=== PATIENT | male | born 1980 | race Caucasian/White ===

== ENCOUNTER 2025-03-17 10:44 | Emergency (ER) | payer OTHER ==
[~2025-03-17] VITALS: Ht 170.2 cm; Wt 86.3 kg
[2025-03-17 11:09] VITALS: TEMP 98.205296
[2025-03-17 11:27] LABS: BASOPHILS % (AUTO) 0.7 % (0.0-2.0); EOSINOPHILS % (AUTO) 2.8 % (1.0-6.0); HEMATOCRIT 48.8 % (41-53); HEMOGLOBIN 16.2 g/dL (13.5-17.5); LYMPHOCYTES % (AUTO) 29.1 % (22.0-44.0); MEAN CORPUSCULAR HEMOGLOBIN 29.7 pg (26.0-34.0); MEAN CORPUSCULAR HGB CONC 33.3 G/dL (31.0-37.0); MEAN CORPUSCULAR VOLUME 89 fL (80-100); MONOCYTES # (AUTO) 0.5 K/uL (0.1-1.0); MONOCYTES % (AUTO) 7.4 % (2.0-9.0); NEUTROPHILS # (AUTO) 4.1 K/uL (1.8-7.7); PLATELET COUNT (AUTO) 205 K/uL (150-450); RED BLOOD CELL COUNT(AUTO) 5.47 MIL/uL (4.50-5.90); RED CELL DISTRIBUTION WIDTH 13.5 % (11.5-14.5); WHITE BLOOD COUNT (AUTO) 6.8 K/uL (4.5-11.0)
[2025-03-17] MEDS: LIDOCAINE 5% TRANSDERMAL PATCH TD ONE (11:37)
[2025-03-17] MEDS: ACETAMINOPHEN 500 MG TABLET PO ONE (11:38)
[2025-03-17] MEDS: METHOCARBAMOL 500 MG TABLET PO ONE (11:38)
[2025-03-17] MEDS: KETOROLAC TROMETHAMINE 30 MG/ML VIAL IM ONE (11:39)
[2025-03-17 12:10] VITALS: BP 115/71; PULSE 73; RESP 14; O2SAT 97
[2025-03-17 12:25] LABS: ANION GAP 8 mmol/L (8-16); CALCIUM, TOTAL 9.1 mg/dL (8.8-10.5); CARBON DIOXIDE 26 mmol/L (22-29); CHLORIDE 103 mmol/L (98-107); CREATININE 1.03 mg/dL (0.60-1.30); GLOMERULAR FILTR. RATE CALC > 60 mL/min (>60); GLUCOSE,RANDOM 96 mg/dL (70-110); POTASSIUM 3.8 mmol/L (3.5-5.1); UREA NITROGEN, BLOOD 14 mg/dL (7-18)
[2025-03-17 12:27] LABS: SODIUM SERUM 137 mmol/L (136-145)
[2025-03-17 12:35] LABS: TROPONIN I-HIGH SENSITIVITY 5 ng/L (<76)
[2025-03-17] MEDS ORDERED: METH-812 PO (13:05)
== END 2025-03-17 13:17 | disposition home or self-care (01) ==
LOC: EMS 10:44
DX: S29.012A Strain of muscle and tendon of back wall of thorax, initial encounter (principal); R07.89 Other chest pain; Z72.89 Other problems related to lifestyle; X58.XXXA Exposure to other specified factors, initial encounter; Y93.89 Activity, other specified; Y92.89 Other specified places as the place of occurrence of the external cause; Y99.8 Other external cause status
CPT/HCPCS: 99285; 71045; 80048; 84484; 85025; 36415; 93005; 96372; J1885